=== PATIENT | male | born 1980 | race Caucasian/White ===

== ENCOUNTER 2017-05-25 07:38 | Day surgery (SDC) | payer MEDICAID ==
[2014-06-05 10:23] VITALS: BMI 25.2
[2017-05-25] MEDS ORDERED: Lactated Ringer's 500 ML IV ONE (08:27)
[2017-05-25] MEDS ORDERED: Midazolam 2 MG/2 ML VIAL ONE (09:09)
[2017-05-25] MEDS ORDERED: Propofol 10 mg/ml Inj (20 ML) ONE (09:09)
[2017-05-25 10:22] VITALS: TEMP 97.1
[2017-05-25 10:38] VITALS: BP 107/59; PULSE 80; RESP 18; O2SAT 99
== END 2017-05-25 10:51 | disposition home or self-care (01) ==
LOC: H.ENDO 07:38
PROVIDERS: ATTEND Internal Medicine Gastroenterology
DX: K30 Functional dyspepsia (principal); I10 Essential (primary) hypertension; K44.9 Diaphragmatic hernia without obstruction or gangrene; K31.9 Disease of stomach and duodenum, unspecified